=== PATIENT | female | born 1975 | race Caucasian/White ===

== ENCOUNTER → 2020-09-18 09:13 | Outpatient (CLI) | payer OTHER, SELFPAY ==
[2020-09-18 11:47] LABS: COVID19 -Nasal RAPID Negative (Negative)
== END ==
PROVIDERS: Visit Provider Student in an Organized Health Care Education/Training Program
DX: Z20.822 Contact with and (suspected) exposure to COVID-19 (principal); Z01.812 Encounter for preprocedural laboratory examination
CPT/HCPCS: 87635

== ENCOUNTER 2020-09-20 06:35 | Day surgery (SDC) | payer OTHER, SELFPAY ==
[2020-09-19 12:54] VITALS: BP 151/94; PULSE 90; RESP 18; TEMP 36.3; O2SAT 94
[2020-09-20] VITALS (10 sets, daily range): BP systolic 137–167; BP diastolic 85–97; PULSE 77–106; RESP 16–28; TEMP 36.1–36.6; O2SAT 96–99; BMI 50.1
--- NOTE | 2020-09-20 07:25 | PM.PREOP ---
Pre-operative Note COVID-19 COVID-19 status: Negative Interval Note History & Physical reviewed/Exam performed by Physician: Yes Changes to H&P: No
[2020-09-20] MEDS: LACTATED RINGERS 1,000 ML 42 ML IV ×2 (07:27→11:15)
[2020-09-20] MEDS: ACETAMINOPHEN 325 MG TABLET 975 MG PO (07:27)
[2020-09-20] MEDS: SCOPOLAMINE 1 PATCH TOP (07:37)
[2020-09-20] MEDS: CEFAZOLIN 3 GM IN 0.9 % NACL 100 ML IV (08:05)
--- NOTE | 2020-09-20 08:08 | SUR.PREOP ---
Block start time [0740] . Time out completed Monitoring initiated and maintained throughout procedure. Oxygen given per anesthesiologist instructions. Medications given by Dr. Tate. Patient remained stable throughout procedure, no adverse reactions noted. Block end time [0800]. Pt left for the OR in stable condition.
--- NOTE | 2020-09-20 08:44 | SUR.OPER ---
Supine on padded OR bed, head on pillow, arms secured on padded arm boards with blanket underneath each pad for aligned shoulder positioning at <90 degrees abduction, legs uncrossed, safety belt across abdomen, tape over blanket over nonoperative lower leg.
--- NOTE | 2020-09-20 09:01 | PM.PROC.1 ---
Procedures Date/Time Date of procedure: 09/20/20 Time of procedure: 07:50 Nerve Block Time out performed: Yes Local anesthetic used: other (5mL 2% Lidocaine, 10mL 0.5% Ropivacaine) Location of anesthetic used: lateral popliteal Amount of anesthesia used (mL): 15 Nerve blocks: other (sciatic nerve) Procedure successful: Yes Patient tolerated procedure: well Complications: none Additional comments: LEFT Ultrasound guided lateral popliteal sciatic nerve block for post operative pain management, as discussed with surgeon. Risks, benefits discussed with patient and spouse. Consent verified. Site marked by surgeon. Time out performed. Standard ASA monitors applied, NC O2, 2mg versed. Pt supine. BETADINE prep. Sterile US sleeve and gel. Sciatic nerve identified proximal to popliteal fossa, at bifurcation. Lidocaine local skin wheal. 100mm x 21g Pajunk needle advanced with in-plane US guidance to nerve. Negative aspiration. 5mL 2% lidocaine and 10mL 0.5% ropivacaine injected with intermittent negative aspiration. Good LA spread noted on US. No pain, no paresthesias. VSS. Tolerated well.
--- NOTE | 2020-09-20 09:02 | P.PCN_ITS ---
Procedures Date/Time Date of procedure: 09/20/20 Time of procedure: 07:45 Nerve Block Time out performed: Yes Local anesthetic used: lidocaine 1% (w/ epi 5mL + 10mL 0.5% ropivacaine) Location of anesthetic used: adductor canal Amount of anesthesia used (mL): 15 Nerve blocks: femoral (adductor canal) Procedure successful: Yes Patient tolerated procedure: well Complications: none Additional comments: Adductor canal block for post operative pain management. R/B discussed. Site marked. Consent verified/signed. Standard ASA monitors. NC O2. Betadine. Sterile technique. Femoral A/V/N identified medial mid thigh with US. Lidocaine skin wheal. 100mm x 21g Pajunk needle advanced with in- plane US guidance. Negative aspiration. LA injected medial and lateral to femoral artery. Negative aspiration throughout. No pain, no paresthesia with injection. VSS. Tolerated well. To OR.
--- NOTE | 2020-09-20 10:01 | DI.RAD.S_ITS ---
PROCEDURE: XR ANKLE LT 2V INDICATIONS: LT ANKLE FIXATION TECHNIQUE: Six intraoperative fluoroscopic spot views of the ankle were acquired. COMPARISON: [facility] Outside Film, CT, CT ANKLE LEFT WITHOUT CONTRAST, 09/09/2020, 14:56. FINDINGS: Bones: Lateral fibular fixation plate and multiple transverse screws are present. There is a medial malleolar lag screw and medial tibial metaphyseal fixation plate with transverse screws. The ankle mortise is normally aligned. There is near anatomic alignment of fibular fracture. Minimally displaced posterior malleolar fracture plane is seen. Soft tissues: Expected overlying intraoperative changes.. IMPRESSION: Intraoperative fluoroscopic spot imaging for ORIF left ankle. Dictated by: Mary Anne Rosen M.D. on 09/20/2020 at 16:06 Approved by: Mary Anne Rosen M.D. on 09/20/2020 at 16:09
[2020-09-20] MEDS: BUPIVACAINE 0.25% W/ EPI 30 ML VIAL INJ (10:25)
[2020-09-20] MEDS: ONDANSETRON 4 MG/2 ML INJ IV (11:03)
[2020-09-20] MEDS: METOCLOPRAMIDE 10 MG/2 ML INJ IV (11:11)
--- NOTE | 2020-09-20 11:18 | P.OP_ITS ---
Operative Date/Time/Diagnoses Date of procedure: 09/20/20 Time of procedure: 08:20 Pre-op diagnosis: Left trimalleolar ankle fracture dislocation S82.852 BMI 50 Z68.43 Post-op diagnosis: same Procedure & Clinicians Procedure: Open reduction internal fixation trimalleolar ankle fracture left Cpt 95173 Removal external fixator device ankle 14210 Modifier #58 for staged procedure. Patient had a fracture out of state was managed in an external fixator and moved to [facility] for definitive fixation Same procedure as scheduled: Yes Indications: During the operation, the services of a physician assistant professor surgical technology were medically indicated and necessary to provide the exposure of the operative site for the surgical procedure and to maintain the limb in a proper position to carry out the operation safely and efficiently. Without a qualified assistant casino shift manager being present this would extended the operative procedure and made the procedure technically more difficult to perform. Surgeon: Hallie Crain Slumber Room Attendant: Althea Ennis Anesthesia Type: General, Peripheral nerve block and Local Operative Notes Findings: Trimalleolar ankle fracture left. Comminuted posterior medial and posterior lateral malleolar fracture fragments with the major fragment posterior medial. Additional smaller anterior medial malleolus fracture fragment that was rotated 90? and displaced. Holliday C lateral malleolus fracture. Medial malleolus was fixed with a single 4-0 cannulated screw from the Arthrex set due to its small size. Posterior malleolus fracture was fixed using a buttress plate along the posterior medial component of the fracture. The lateral malleolus was fixed with a 1/3 tubular plate and screws. The syndesmosis was stressed under external rotation under fluoroscopy there was no widening. Prosthetic devices, grafts, tissues, transplants, or devices: Lateral malleolus: Arthrex 7 hole 1/3 tubular plate--cortical screws Posterior malleolus: Arthrex 4 hole 1/3 tubular plate and screws Medial malleolus: Arthrex 4.0 40 mm long thread cannulated screw Applied: other (Splint) Estimated Blood Loss (mL): 20 Blood products transfused: none Tourniquet time (min): 93 Procedure in detail: Patient was seen in the preoperative area the site of surgery marked informed consent confirmed. A peripheral nerve block was placed by the anesthesia team for postoperative pain control. Patient was taken back to the operating room and positioned supine on the operative table. General anesthetic was administered. A well-padded thigh tourniquet was placed. All bony prominences were well padded. An SCD was placed on the contralateral lower extremity. Formal time-out was performed confirming the patient's side and site of surgery administration of appropriate weight based antibiotics presence of informed consent and implants. All were in agreement. Attention then turned to the left lower extremity. The external fixator was removed in standard fashion following removal the left lower extremities prepped and draped in the standard sterile fashion. An additional time-out was performed. Gauze and Ioban were used over the external fixator sites. Attention turned to the left ankle. Esmarch was used for exsanguination the tourniquet raised on the thigh to 250 mmHg. Due to the predominantly posterior medial fragment of the posterior malleolus this was attended to 1st. A posterior medial incision over the posterior tibialis tendon was taken down around the medial malleolus this was taken down through the subcutaneous tissue the posterior tendon sheath was identified and opened. The posterior tibialis tendon was reflected anteriorly. This did expose the posterior medial aspect of the posterior malleolus fracture. This was debrided and reduced and pinned in place provisionally. Then attention was turned to the anterior aspect of the medial malleolus with separate medial malleolar fragment this had infolded periosteum this was removed the fracture was cleaned using the pituitary rongeur and irrigation. The fracture was de rotated and reduced and held in place with a pointed reduction clamp and K-wire. Provisional x-rays were brought in and in the AP and lateral planes demonstrated appropriate reduction and wire placement at therefore a 4 hole 1/3 tubular plate was then positioned just posterior to the posterior tibialis tendon groove and fixed in place and buttress style to stabilize the posterior malleolus. Care was taken to the keep this just posterior to the tendon groove. The medial malleolus was then fixed with a 4.0 cannulated screw from the Arthrex set. This was quite a small fragments was single screw was used in the long thread was appropriate. Next the leg was internally rotated and attention turned to the lateral malleolus incision was made directly over the lateral malleolus and taken down to the bone there was a short oblique fracture with a posterior butterfly this was reduced using the reduction clamps and then plated with a 7 hole 1/3 tubular plate and screws. Bone quality was noted to be good with good bite on the cortical screws. Following completion of fixation x-ray was brought in and live fluoroscopy using external rotation stress was completed demonstrating stabilization of the syndesmosis and appropriate fixation hardware placement. The wounds were irrigated the tourniquet was released hemostasis was achieved. Deep closure was performed with 2-0 Vicryl suture and 4-0 Monocryl in the subcutaneous and 3-0 nylon in the skin. All counts were correct. Dressings were placed with Xeroform gauze Webril and Delgado wrap. Following closure of the surgical wounds the pin sites were curetted and irrigated and a single loose stitch was placed in these to approximate them. Was noted consistent with the preoperative exam in clinic the patient did have a superficial ulceration posteriorly from resting pressure in her external fixator --a Xeroform gauze was placed on this and care was taken to place the splint with no posterior slab a to avoid any more pressure on this. She was awoken from anesthesia and taken to the recovery room in good condition. There no immediate complications. Post-operative Plan for aftercare: Nonweightbearing left lower extremity. Aspirin starting postop day 1 for DVT prophylaxis. Pain medications were sent to her pharmacy as well as anti nausea medication. She is on senna can also take Colace for stool softeners. She will follow up in 2 weeks. Sutures will remain in place minimum 2 weeks
--- NOTE | 2020-09-20 12:22 | SUR.PHASEII ---
Assumed care from Vanita, pt denies pain, states she still has residual nausea, but would like to sip on paul pankaj.
--- NOTE | 2020-09-20 13:38 | SUR.PHASEII ---
Assisted to the bathroom in the wheelchair. States that nausea is improved, voided and dressed herself unassisted. Stated this isn't my first rodeo. Returned to bedside in wheelchair, crackers and soda at chairside. Stated that she feels ready to go home; ride notified.
== END 2020-09-20 13:52 | disposition home or self-care (01) ==
PROVIDERS: Referring Provider Orthopaedic Surgery Foot and Ankle Surgery; Visit Provider Orthopaedic Surgery Foot and Ankle Surgery
PROC: (CPT 27823; principal; 2020-09-20 07:45)
DX: S82.852A Displaced trimalleolar fracture of left lower leg, initial encounter for closed fracture (principal); Z68.43 Body mass index [BMI] 50.0-59.9, adult; E66.9 Obesity, unspecified; I10 Essential (primary) hypertension; F32.9 Major depressive disorder, single episode, unspecified; G47.33 Obstructive sleep apnea (adult) (pediatric); W19.XXXA Unspecified fall, initial encounter; Y92.89 Other specified places as the place of occurrence of the external cause
CPT/HCPCS: 27823; 20694; 64450; 73600; 76000; J0690; J1100; J2250; J2405; J2704; J2765; J3010

== ENCOUNTER → 2020-11-15 08:56 | Outpatient (CLI) | payer OTHER, SELFPAY ==
[2020-11-15 09:26] LABS: COVID19 -Nasal RAPID Negative (Negative)
== END ==
PROVIDERS: Visit Provider Nurse Practitioner
DX: Z20.822 Contact with and (suspected) exposure to COVID-19 (principal); J02.9 Acute pharyngitis, unspecified; R05.9 Cough, unspecified; R51.9 Headache, unspecified; R52 Pain, unspecified
CPT/HCPCS: 87635

== ENCOUNTER → 2021-02-09 11:58 | Outpatient (CLI) | payer OTHER, SELFPAY ==
[2021-02-09 12:32] LABS: COVID19 -Nasal RAPID Negative (Negative)
== END ==
PROVIDERS: Referring Provider Physician Assistant; Visit Provider Physician Assistant
DX: Z20.822 Contact with and (suspected) exposure to COVID-19 (principal)
CPT/HCPCS: 87635

== ENCOUNTER → 2021-02-27 15:06 | Outpatient (CLI) | payer OTHER, SELFPAY ==
--- NOTE | 2021-02-27 | DI.RAD.S_ITS ---
PROCEDURE: XR CHEST 2V INDICATIONS: Palpitations TECHNIQUE: 2 views of the chest were acquired. COMPARISON: None. FINDINGS: Surgical changes and devices: None. Lungs and pleura: Lungs are clear. No pleural effusions or pneumothorax. Mediastinum: Mediastinal contours are normal. Heart size is normal. Bones and chest wall: No suspicious bony abnormalities. Soft tissues appear unremarkable. IMPRESSION: No acute process. Dictated by: Ion Price M.D. on 02/27/2021 at 16:06 Approved by: Ion Price M.D. on 02/27/2021 at 16:06
== END ==
PROVIDERS: PCP Student in an Organized Health Care Education/Training Program; Referring Provider Student in an Organized Health Care Education/Training Program; Visit Provider Student in an Organized Health Care Education/Training Program
DX: R00.2 Palpitations (principal)
CPT/HCPCS: 71046

== ENCOUNTER → 2021-04-15 14:58 | Outpatient (CLI) | payer OTHER, SELFPAY ==
--- NOTE | 2021-04-15 | DI.NM.S_ITS ---
PROCEDURE: NM EXERCISE TREADMILL NON NUC COMPARISON: None. INDICATIONS: Old myocardial infarction FINDINGS: The patient exercised for 6 minutes and 0 seconds reaching 7.0 METs and ERI +27%. 90% of maximum predicted heart rate achieved. Appropriate BP response to exercise. No angina during the study. No ST changes with exercise. No ectopy noted. IMPRESSION: Low risk, normal treadmill ECG only stress test with reduce exercise tolerance (ERI +27%). Target heart rate achieved. No angina. No ischemic changes on ECG. Dictated by: Dean Burch MD on 04/15/2021 at 16:06 Approved by: Dean Burch MD on 04/15/2021 at 16:08
== END ==
PROVIDERS: PCP Student in an Organized Health Care Education/Training Program; Referring Provider Student in an Organized Health Care Education/Training Program; Visit Provider Student in an Organized Health Care Education/Training Program
DX: I25.2 Old myocardial infarction (principal)
CPT/HCPCS: 93017

== ENCOUNTER → 2021-04-21 10:19 | Outpatient (CLI) | payer OTHER, SELFPAY ==
--- NOTE | 2021-04-21 | DI.ECHO.S_ITS ---
[facility]---------+ [facility] +---------+ : : [address] [place] : : : : [id number] : : : : Phone: [phone]+ Echocardiogram Report + + :Name: VALENTIN YAP Study Date: 04/21/2021 Height: 67 in : :[facility] ReadingLocation: Weight: 298 lb : : Gender: Female BSA: 2.4 m2 : :: 1975 Age: 45 yrs BP: 134/82 mmHg: :Reason For Study: OLD MYOCARDIAL INFARCTION/ LAB : :Ordering Physician: FREDDIE, : :DEENA Performed By: Gisell Camarillo : :Referring: DEENA FRAZIER : + + Interpretation Summary There is mild concentric left ventricular hypertrophy. The ejection fraction is estimated to be 60-65%. Diastolic function could not be accurately assessed due to unobtainable data. The right ventricle is mildly dilated. The right ventricular systolic function is normal. The left atrium is mildly dilated. No significant valvular abnormalities. Pulmonary artery pressures cannot be estimated because of the lack of a measurable TR jet velocity. Procedure: A two-dimensional transthoracic echocardiogram with color flow and Doppler was performed. The study quality was technically adequate. There is no prior echocardiogram noted for this patient. The patient was in sinus rhythm with heart rates between 68-76 bpm during the exam. Left Ventricle: The left ventricle is normal in size. There is mild concentric left ventricular hypertrophy. The ejection fraction is estimated to be 60-65%. Diastolic function could not be accurately assessed due to unobtainable data. Right Ventricle: The right ventricle is mildly dilated. The right ventricular systolic function is normal. Atria: The left atrium is mildly dilated. Right atrial size is normal. There is no Doppler evidence for an interatrial shunt. Mitral Valve: The mitral valve is normal in structure and function. There is trace mitral regurgitation. Aortic Valve: The aortic valve opens well. There is no aortic valve stenosis. No aortic regurgitation is present. Tricuspid Valve: The tricuspid valve is normal in structure and function. There is a trace or physiologic amount of tricuspid regurgitation. Pulmonary artery pressures cannot be estimated because of the lack of a measurable TR jet velocity. Pulmonic Valve: The pulmonic valve is not well visualized. There is no pulmonic valvular regurgitation. Great Vessels: The aortic root is normal size. The dimensions of the ascending aorta are normal. The IVC is of normal diameter and collapses greater than 50% with a sniff. This suggests a low right atrial pressure of 3 mm Hg. Pericardium/ Pleura There is no pericardial effusion. There is no pleural effusion. MMode/2D Measurements & Calculations LVIDd: 4.2 cm LVOT diam: 2.0 cm LVIDs: 2.5 cm Ao root diam: 3.5 cm FS: 39.9 % asc Aorta Diam: 3.5 cm IVSd: 1.1 cm Ao Arch Diam (Prox Trans): 2.7 cm LVPWd: 1.1 cm LV obando. diameter/BSA (cm/m^2): 1.7 LV sys. diameter/BSA (cm/m^2): 1.1 LA A2 area: 24.7 cm2 RA long axis: 5.3 cm LA A4 area: 29.1 cm2 RA area: 21.9 cm2 LA length (vol): 6.1 cm RA vol: 76.9 ml LA vol: 100.4 ml RA : 32.1 ml/m2 LA vol index: 41.9 ml/m2 IVC diam: 1.6 cm RVD1 (basal): 4.3 cm TAPSE: 2.4 cm Doppler Measurements & Calculations Ao V2 max: 142.2 cm/sec LVOT Max Margarito: 99.5 cm/sec Ao V2 mean: 101.5 cm/sec LV V1 max P.0 mmHg Ao max P.1 mmHg LV V1 VTI: 24.0 cm Ao mean P.5 mmHg JESICA(I,D): 2.3 cm2 Ao V2 VTI: 32.5 cm JESICA(V,D): 2.2 cm2 sev ratio: 0.74 JESICA indexed to BSA (cm^2/m^2): 0.97 MV E max margarito: 76.9 cm/sec PA V2 max: 96.9 cm/sec MV A max margarito: 81.5 cm/sec PA V2 mean: 62.9 cm/sec MV E/A: 0.94 PA mean P.8 mmHg Med Peak E' Margarito: 7.2 cm/sec PA pr(Accel): 22.5 mmHg E/E' med: 10.8 Lat Peak E' Margarito: 10.1 cm/sec E/E' lat: 7.6 E/e' average: 9.2 MV dec time: 0.21 sec SVLVOT): 75.7 ml Reading Physician:09:55 AM
[2021-04-21 11:44] LABS: Add Manual Diff / Slide Review NO; Basophils Absolute Auto 100 /uL (0-100); Basophils Percent Auto 0.7 % (0-2); Eosinophils Absolute Auto 100 /uL (0-450); Hematocrit 38.8 % (36-46); Hemoglobin 12.9 g/dL (12.0-16.0); Lymphocytes Absolute Auto 2800 /uL (1100-4500); Lymphocytes Percent Auto 29.4 % (25-40); Mean Corpuscular HGB Conc 33.3 % (30-36); Mean Corpuscular Hemoglobin 28.7 PG (26-34); Mean Corpuscular Volume 86.3 fL (80-100); Monocytes Absolute Auto 500 /uL (0-900); Monocytes Percent Auto 4.8 % (3-14); Neutrophils Absolute Auto 6100 /uL (1500-7000); Neutrophils Percent Auto 64.1 % (50-75); Platelet Count 357 X10^3/uL (150-400); Red Cell Distribution Width 13.8 % (11.6-14.8); White Blood Cell Count 9.5 X10^3/uL (4.5-11.0)
[2021-04-21 11:49] LABS: Hemoglobin A1C% w Est Avg Glu 5.1 % (4.0-6.0)
[2021-04-21 12:29] LABS: BUN Creatinine Ratio 26.2 (6-22); Blood Urea Nitrogen 17 mg/dL (7-17); Calcium 9.1 mg/dL (8.4-10.2); Carbon Dioxide 25 mmol/L (22-32); Chloride 105 mmol/L (98-107); Cholesterol 189 mg/dL (140-199); Estimated Glomerular Filt Rate > 60.0 mL/min (>60); Glucose 84 mg/dL (70-100); HDL Cholesterol 39 mg/dL (40-60); HEMOLYSIS < 15 (0-50); LDL Cholesterol Calculated 119 mg/dL (<100); Magnesium 2.1 mg/dL (1.6-2.3); Potassium 4.6 mmol/L (3.4-5.1); Sodium 137 mmol/L (137-145); Triglycerides 155 mg/dL (35-150)
[2021-04-21 12:54] LABS: TSH w/ Reflex to FT4 2.07 uIU/mL (0.47-4.68)
== END ==
PROVIDERS: PCP Student in an Organized Health Care Education/Training Program; Referring Provider Student in an Organized Health Care Education/Training Program; Visit Provider Student in an Organized Health Care Education/Training Program
DX: I25.2 Old myocardial infarction (principal); I47.2 Ventricular tachycardia; I10 Essential (primary) hypertension; R00.2 Palpitations; E78.1 Pure hyperglyceridemia
CPT/HCPCS: 36415; 80048; 80061; 83036; 83735; 84443; 85025; 93306

== ENCOUNTER 2021-07-11 06:23 | Day surgery (SDC) | payer OTHER, SELFPAY ==
[2021-07-08 08:05] VITALS: BMI 44.9
[2021-07-11] VITALS (16 sets, daily range): BP systolic 140–159; BP diastolic 77–97; PULSE 69–83; RESP 12–18; TEMP 36.1–36.5; O2SAT 93–98; BMI 44.9
[2021-07-11] MEDS: ACETAMINOPHEN 325 MG TABLET 975 MG PO (06:58)
[2021-07-11] MEDS: GABAPENTIN 300 MG CAPSULE PO (06:59)
[2021-07-11] MEDS: SCOPOLAMINE 1 PATCH TOP (07:01)
[2021-07-11] MEDS: LACTATED RINGERS 1,000 ML 42 ML IV (07:01)
[2021-07-11 07:06] LABS: COVID19 -Nasal RAPID Negative (Negative)
--- NOTE | 2021-07-11 07:26 | PM.PREOP ---
Pre-operative Note COVID-19 COVID-19 status: Negative Result date/Date tested (Pos, Neg/Pending): 07/11/21 Interval Note History & Physical reviewed/Exam performed by Physician: Yes Changes to H&P: No
[2021-07-11] MEDS: CEFAZOLIN 3 GM IN 0.9 % NACL 3 GM/100 ML PLAST..BAG IV (07:45)
--- NOTE | 2021-07-11 08:20 | SUR.OPER ---
Supine on padded OR bed, head on pillow, arms secured on padded arm boards at <90 degrees abduction, legs uncrossed, safety belt at thigh, tape over blanket over lower legs. directed and approved by surgeon
[2021-07-11] MEDS: BUPIVACAINE 0.25% (PF) 30 ML, EPINEPHrine 0.15 MG INJ (08:26)
--- NOTE | 2021-07-11 09:25 | P.OP_ITS ---
Operative Date/Time/Diagnoses Date of procedure: 07/11/21 Time of procedure: 08:00 Pre-op diagnosis: Painful orthopedic hardware left ankle Fracture ankle trimalleolar left sequela Post-op diagnosis: other (Same as above plus adherent tendinitis and backside tear posterior tibialis tendon) Procedure & Clinicians Procedure: 1. Removal symptomatic hardware ankle left CPT code 61511 2. Debridement posterior tibialis tendon and backside tear repair CPT code 75028 Same procedure as scheduled: Yes Indications: Patient is a 45-year-old female status post a severe left ankle fracture dislocation she had stage treatment she was 1st placed into an external fixator in [place] and was later converted to definitive ORIF and external fixator removal by myself about 10 months ago. She has had continued pain along her medial and lateral ankle. She has been indicated for hardware removal and exploration. The risks and benefits of the procedure have been discussed with the patient even opportunity to ask questions. The risks of surgery include but are not limited to infection, malunion, nonunion, persistence of pain, damage to nerves and blood vessels, posttraumatic arthritis, DVT, PE, cardiopulmonary complications and . The patient expressed a thorough understanding of the risks and benefits of surgery and has elected to proceed. Consent was signed in the office today. Surgeon: Hallie Crain Click Yes if Unassisted: Yes Anesthesia Type: General and Local Operative Notes Findings: Retained orthopedic hardware. Healed fractures. All hardware was removed. Ankle was stable under fluoro stress exam post removal. Adherent tenosynovitis along the posterior tibialis tendon along with a backside partial thickness tear. No full-thickness tears. The adherent tendinitis was debrided and the backside tear was repaired 2-0 Vicryl tubularizing the tendon Closure Type: primary Specimen(s): none sent Estimated Blood Loss (mL): 10 Blood products transfused: none Tourniquet time (min): 56 Procedure in detail: Patient was seen in the preoperative area the site of surgery marked informed consent confirmed. The patient was brought back to the operating room by the anesthesia team positioned supine on the operative table. General anesthetic was administered. All bony prominences well padded. A well-padded thigh tourniquet was placed. A SCD was on the contralateral lower extremity. And an ipsilateral thigh bump was placed. The left lower extremities prepped and draped in the standard sterile fashion formal time-out procedure was performed confirming the patient's side and site of surgery administration of appropriate preoperative antibiotics which were weight based Ancef 3 g. All were in agreement. Attention turned to the left lower extremity the Esmarch was used for exsanguination the tourniquet elevated to 250 mmHg. Attention was turned to the ankle the previous lateral incision was reopened using the scalpel. Dissection was taken down to the fibular plate this was exposed and removed with 6 screws and a 1/3 tubular plate. The bone was then rongeured off the wound was irrigated and closed with 2-0 Vicryl and 3-0 nylon suture. They 5 bump was then removed and the foot allowed to externally rotate and the medial incision was then reopened in the same fashion with careful dissection down to the medial malleolus. The posterior tibialis tendon sheath was opened. There was copious adherent scar in this area. The tendon was exposed and retracted posteriorly adherent scar to the back the tibia was removed and the posterior medial tibial plate was exposed. Screws were removed and the 1/3 tubular plate was removed. The tendon was debrided of adherent tenosynovitis and scar. There was a backside partial thickness tear that was demonstrated this was debrided and tubularized with a 2-0 Vicryl suture. Again the scar was freed up to allow good tendon gliding. Once this was completed attention was turned distally and the anterior medial now partially threaded screw was identified and removed in the standard fashion. Once this was completed the patient leg was placed under the mini C-arm for a fluoroscopic examination confirming appropriate complete hardware removal and healed fractures and stable mortise. The wounds were irrigated and closed with 2-0 Vicryl suture 4-0 Monocryl and 3-0 nylon suture. Tourniquet was released and hemostasis obtained prior to final closure. Local anesthetic was injected for postoperative pain control. Sterile dressing with Xeroform gauze Kerlix and Delgado wraps were placed. Drapes removed. The patient was placed back into her postoperative boot awoken from anesthesia and taken to recovery room in good condition there no immediate complications to this procedure. All counts were correct Complications: none Post-operative Condition: stable Disposition: PACU Plan for aftercare: Weightbear as tolerated in the boot. Keep incisions dry until follow-up in the clinic in approximately 2 weeks. Elevate as needed for swelling reduction and pain control. Will take aspirin for DVT prophylaxis for 2 weeks while in the boot
[2021-07-11] MEDS: fentaNYL 100 MCG/2 ML INJ IV ×6 (09:30→10:05)
[2021-07-11] MEDS: HYDROCODONE/ACET 5/325 TABLET 1 TAB PO (09:37)
[2021-07-11] MEDS: OXYCODONE IR 5 MG TABLET PO (10:05)
[2021-07-11] MEDS: LORazepam 2 MG/ML INJ 0.25 MG IV (10:09)
== END 2021-07-11 11:16 | disposition home or self-care (01) ==
PROVIDERS: PCP Student in an Organized Health Care Education/Training Program; Referring Provider Orthopaedic Surgery Foot and Ankle Surgery; Visit Provider Orthopaedic Surgery Foot and Ankle Surgery
PROC: (CPT 27659; principal; 2021-07-11 07:45)
DX: T84.84XA Pain due to internal orthopedic prosthetic devices, implants and grafts, initial encounter (principal); M65.872 Other synovitis and tenosynovitis, left ankle and foot; S96.812A Strain of other specified muscles and tendons at ankle and foot level, left foot, initial encounter; Z68.43 Body mass index [BMI] 50.0-59.9, adult; E66.01 Morbid (severe) obesity due to excess calories; I10 Essential (primary) hypertension; F43.10 Post-traumatic stress disorder, unspecified; G47.33 Obstructive sleep apnea (adult) (pediatric)
CPT/HCPCS: 27659; 27704; 81025; 82962; 87635; C9803; J0171; J0690; J1100; J1885; J2060; J2250; J2405; J2704; J3010

== ENCOUNTER → 2021-09-19 09:16 | Outpatient (CLI) | payer OTHER, SELFPAY ==
--- NOTE | 2021-09-19 | DI.ECHO.S_ITS ---
[facility] +---------+ : : [address] [place] : : : : [id number] : : : : Phone: [phone] Echocardiogram Report + + :Name: VALENTIN YAP Study Date: 09/19/2021 Height: 67 in : :[facility] ReadingLocation: Weight: 300 lb : : Gender: Female BSA: 2.4 m2 : :: 1975 Age: 46 yrs BP: 152/90 mmHg: :Reason For Study: VTACH : : Performed By: Umberto Davenport : :Referring: ELISSA BURCH : + + Interpretation Summary 1) Normal left ventricular thickness, size, wall motion, and systolic function (EF 60-65%). 2) Normal right ventricular size and function. 3) No significant valvular abnormalities. 4) Compared to the Echo done 04/21/2021, on significant change. Procedure: A two-dimensional transthoracic echocardiogram with color flow and Doppler was performed. The study quality was technically adequate. Comparison is made with the echocardiogram of 04/21/21. The patient was in normal sinus rhythm during the exam. Left Ventricle: The left ventricle is normal in size. There is normal left ventricular wall thickness. The ejection fraction is estimated to be 60-65%. There are no focal wall motion abnormalities. Diastolic parameters suggest a relaxation abnormality of the left ventricle, consistent with probable normal filling pressures. Right Ventricle: The right ventricle is normal in size and function. Atria: The left atrium is moderately dilated. Right atrial size is normal. There is no Doppler evidence for an atrial septal defect. Mitral Valve: The mitral valve is normal in structure and function. There is trace mitral regurgitation. Aortic Valve: The aortic valve is trileaflet. The aortic valve opens well. There is no aortic valve stenosis. No aortic regurgitation is present. Tricuspid Valve: The tricuspid valve is normal in structure and function. No tricuspid regurgitation. Pulmonary artery pressures cannot be estimated because of the lack of a measurable TR jet velocity but the IVC suggests a CVP of around 3 mmHg. Pulmonic Valve: The pulmonic valve is not well visualized. There is no pulmonic valvular regurgitation. Great Vessels: The aortic root is normal size. The ascending aorta is at the upper limits of normal in size. The pulmonary artery is normal size. The IVC is of normal diameter and collapses greater than 50% with a sniff. This suggests a low right atrial pressure of 3 mm Hg. Pericardium/ Pleura There is no pericardial effusion. There is no pleural effusion. MMode/2D Measurements & Calculations LVIDd: 5.1 cm LVOT diam: 2.1 cm LVIDs: 3.0 cm Ao root diam: 3.0 cm FS: 41.6 % asc Aorta Diam: 3.5 cm EPSS: 0.22 cm Ao Arch Diam (Prox Trans): 2.5 cm IVSd: 0.92 cm LVPWd: 0.78 cm LV obando. diameter/BSA (cm/m^2): 2.1 LV sys. diameter/BSA (cm/m^2): 1.2 LA A2 area: 27.8 cm2 RA long axis: 4.8 cm LA A4 area: 27.0 cm2 RA area: 16.5 cm2 LA length (vol): 6.6 cm RA vol: 48.6 ml LA vol: 96.2 ml RA : 20.2 ml/m2 LA vol index: 40.1 ml/m2 IVC diam: 1.6 cm TAPSE: 2.4 cm Doppler Measurements & Calculations Ao V2 max: 175.4 cm/sec LVOT Max Margarito: 108.2 cm/sec Ao V2 mean: 142.6 cm/sec LV V1 max P.7 mmHg Ao max P.3 mmHg LV V1 VTI: 26.2 cm Ao mean P.5 mmHg JESICA(I,D): 2.1 cm2 Ao V2 VTI: 41.2 cm JESICA(V,D): 2.1 cm2 sev ratio: 0.64 JESICA indexed to BSA (cm^2/m^2): 0.89 MV E max margarito: 67.7 cm/sec PA V2 max: 86.9 cm/sec MV A max margarito: 88.1 cm/sec PA V2 mean: 69.9 cm/sec MV E/A: 0.77 PA mean P.0 mmHg Med Peak E' Margarito: 5.8 cm/sec PA pr(Accel): 34.5 mmHg E/E' med: 11.6 Lat Peak E' Margarito: 8.8 cm/sec E/E' lat: 7.7 E/e' average: 9.6 MV dec time: 0.25 sec SV(LVOT): 88.3 ml Reading Physician:10:00 AM
== END ==
PROVIDERS: Referring Provider Internal Medicine Cardiovascular Disease; Visit Provider Internal Medicine Cardiovascular Disease
DX: I47.2 Ventricular tachycardia (principal); I10 Essential (primary) hypertension
CPT/HCPCS: 93306

== ENCOUNTER 2022-04-27 12:13 | Emergency (ER) | payer OTHER, SELFPAY ==
[2022-04-27] VITALS (7 sets, daily range): BP systolic 136–174; BP diastolic 75–105; PULSE 66–78; RESP 18; TEMP 36.4; O2SAT 96–99; BMI 43.0
--- NOTE | 2022-04-27 12:51 | ED.GIBLEED ---
HPI - GI Bleed <Williams Warren PA-C - Last Filed: 04/27/22 15:45> General Chief complaint: GI Bleed Stated complaint: hives, abd pain, rectal bleeding, sent from [facility] Time Seen by Provider: 04/27/22 12:27 Source: patient Mode of arrival: Ambulatory History of Present Illness HPI Narrative: 46-year-old female presents to the ED with 3 days of right-sided abdominal pain, blood in stool, hives. Patient states that she is not aware of any hemorrhoids or prior rectal bleeds. Patient states she has had somewhat constipated bowel movements which is baseline, noted some bright red blood with every bowel movement over the last 3 days. Patient also complains of a right-sided upper quadrant pain. Patient endorses a history of gallbladder pain about 2 years ago, however has not been acting up recently. patient also endorses intermittent hives over the last 3 days. patient does have a lesion that looks like a bug bite on her right forearm. patient was allergy tested in the past with no allergies diagnosed. Patient has had prior episodes of hives of unknown etiology. Patient denies fever, chills, chest pain, shortness of breath, tongue swelling, lip swelling, throat swelling, nausea, vomiting, dysuria, lightheadedness, dizziness, syncope. Patient states that she does have a baseline level of urinary leakage, which has worsened since she broke her ankle and has not been able to get to the bathroom in a timely fashion. Related Data Home Medications Medication Instructions Recorded Confirmed ResMed AirSense 10 05/19/21 05/19/21 diltiazem HCl 240 mg 240 mg PO DAILY 07/08/21 07/11/21 tablet,extended release 24 hr Previous Rx's Medication Instructions Recorded prednisone 20 mg tablet 40 mg PO DAILY 5 days #10 tabs 04/27/22 Allergies Allergy/AdvReac Type Severity Reaction Status Date / Time povidone-iodine Allergy Severe Rash Verified 04/27/22 12:24 [From Betadine] Review of Systems <Williams Warren PA-C - Last Filed: 04/27/22 15:45> Review of Systems ROS Unobtainable: All systems reviewed & are unremarkable except as noted in HPI and below Constitutional Constitutional: Denies chills, Denies fatigue, Denies fever(s), Denies frequent falls, Denies lethargy and Denies weakness Eyes Eyes: Denies change in vision, Denies eye discharge, Denies irritation and Denies loss of vision ENT Ears, Nose, Mouth, and Throat: Denies change in voice, Denies dizziness, Denies neck pain, Denies sore throat and Denies throat swelling Cardiovascular Cardiovascular: Denies chest pain, Denies irregular heart rhythm, Denies lightheadedness, Denies palpitations, Denies dyspnea, Denies dyspnea on exertion and Denies orthopnea Respiratory Respiratory: Denies cough, Denies dyspnea, Denies dyspnea on exertion and Denies wheezing Gastrointestinal Gastrointestinal: Reports abdominal pain, Reports hematochezia, Denies change in bowel habits, Denies diarrhea, Denies nausea and Denies vomiting Genitourinary Genitourinary: Denies hematuria, Denies flank pain, Reports urinary incontinence and Denies urinary urgency Musculoskeletal Musculoskeletal: Denies back pain, Denies muscle weakness, Denies neck pain, Denies numbness and Denies tingling Integumentary/Breasts Skin/Breast: Denies pruritus, Denies erythema, Reports rash and Denies wounds Neurologic Neurologic: Denies behavioral changes, Denies confusion, Denies dizziness, Denies frequent falls, Denies loss of vision, Denies numbness, Denies tingling and Denies weakness Psychiatric Psychiatric: Denies anxiety, Denies behavioral changes, Denies confusion, Denies depression, Denies homicidal ideation and Denies suicidal ideation Endocrine Endocrine: Denies fatigue, Denies flushing and Denies palpitations Hematologic/Lymphatic Hematologic/Lymphatic: Denies easy bruising Allergic/Immunologic Allergic/Immunologic: Denies urticaria, Denies throat swelling and Denies wheezing Patient History <Williams Warren PA-C - Last Filed: 04/27/22 15:45> Medical History Awareness under anesthesia BCC (basal cell carcinoma) Chest pain Depression HTN (hypertension) Hypertriglyceridemia Migraine Palpitations PONV (postoperative nausea and vomiting) PTSD (post-traumatic stress disorder) Sleep apnea Surgical History History of open reduction and internal fixation (ORIF) procedure (09/20/20) Social History household members: family Smoking Status: Never smoker alcohol intake: current Smoking Status: Never smoker alcohol intake frequency: a few times a month Substance Use Type: does not use Exam <Williams Warren PA-C - Last Filed: 04/27/22 15:45> Narrative Exam Narrative: Const General:?cooperative, healthy appearing and comfortable [facility] Head:?normal to inspection Ears:?hearing grossly normal bilaterally Nose:?external nose normal Face and sinus:?normal facial exam and sinuses nontender Mouth:?oral mucosae normal; No lip swelling, tongue swelling Throat:?posterior oropharynx normal; no throat swelling; airway is patent Eyes General:?appearance normal, both eyes and all related structures Neck Neck:?normal visual inspection and no lymphadenopathy noted Resp Effort & Inspection:?normal respiratory effort Auscultation:?clear to auscultation bilaterally Cardio Rate:?regular rate Rhythm:?regular rhythm GI abdomen is soft, nondistended. Abdomen is tender to palpation in the right upper quadrant. There is no CVA tenderness to palpation. Integumentary there is 1 lesion on the left forearm that is erythematous, appears again to a bug bite. No hives visualized on exam. Neuro General:?patient alert, patient awake and patient oriented x3 Initial Vital Signs Initial Vital Signs: Vital Signs Temperature 97.5 F L 04/27/22 12:15 Pulse Rate 78 04/27/22 12:15 Respiratory Rate 18 04/27/22 12:15 Blood Pressure 174/103 H 04/27/22 12:15 Pulse Oximetry 99 04/27/22 12:15 Oxygen Delivery Method Room Air 04/27/22 12:15 <Mars Chi DO - Last Filed: 04/27/22 16:11> Initial Vital Signs Initial Vital Signs: Vital Signs Temperature 97.5 F L 04/27/22 12:15 Pulse Rate 78 04/27/22 12:15 Respiratory Rate 18 04/27/22 12:15 Blood Pressure 174/103 H 04/27/22 12:15 Pulse Oximetry 99 04/27/22 12:15 Oxygen Delivery Method Room Air 04/27/22 12:15 Course <Williams Warren PA-C - Last Filed: 04/27/22 15:45> Orders Ordered: ED Orders 04/27/22 12:50 Complete Blood Count AUTO DIFF Stat Comprehensive Metabolic Panel Stat Lactate (Lactic Acid) Stat PTT Partial Thromboplastin Ugstavo Stat Prothrombin Time INR Stat 04/27/22 13:07 US abdomen limited Stat 04/27/22 14:46 CT abdomen pelvis w con Stat Discontinued Medications Diphenhydramine HCl (Diphenhydramine 50 Mg/Ml Vial) 25 mg IV NOW ONE Stop: 04/27/22 13:10 Last Admin: 04/27/22 13:15 Dose: 25 mg Documented By: JAREN Famotidine (Famotidine 20 Mg/2 Ml Vial) 20 mg IV NOW RONEL Last Admin: 04/27/22 13:15 Dose: 20 mg Documented By: JAREN Ondansetron HCl (Ondansetron 4 Mg/2 Ml Inj) 4 mg IV NOW PRN PRN Reason: Nausea And Vomiting Ondansetron HCl (Ondansetron 4 Mg Odt) 4 mg SL NOW PRN PRN Reason: Nausea And Vomiting Pantoprazole Sodium (Pantoprazole 40 Mg Vial) 80 mg IV NOW ONE Stop: 04/27/22 12:24 Last Admin: 04/27/22 13:01 Dose: 80 mg Documented By: JAREN Prednisone (Prednisone 20 Mg Tablet) 60 mg PO NOW ONE Stop: 04/27/22 13:12 Last Admin: 04/27/22 13:17 Dose: 60 mg Documented By: JAREN Vital Signs Vital signs: Vital Signs - 8 hr 04/27/22 12:15 04/27/22 13:06 04/27/22 13:06 Temperature 97.5 F L Pulse Rate 78 69 Respiratory Rate 18 Blood Pressure 174/103 H 165/105 H Pulse Oximetry 99 98 Oxygen Delivery Method Room Air 04/27/22 13:30 04/27/22 13:30 04/27/22 14:00 Temperature Pulse Rate 69 66 Respiratory Rate 18 Blood Pressure 159/75 H Pulse Oximetry 96 97 Oxygen Delivery Method 04/27/22 14:01 04/27/22 14:01 04/27/22 14:30 Temperature Pulse Rate 66 Respiratory Rate 18 Blood Pressure 158/75 H 136/75 Pulse Oximetry 99 Oxygen Delivery Method 04/27/22 14:30 04/27/22 15:21 Temperature Pulse Rate 68 72 Respiratory Rate 18 Blood Pressure 145/94 H Pulse Oximetry 96 97 Oxygen Delivery Method Room Air <Mars Chi DO - Last Filed: 04/27/22 16:11> Orders Ordered: ED Orders 04/27/22 12:50 Complete Blood Count AUTO DIFF Stat Comprehensive Metabolic Panel Stat Lactate (Lactic Acid) Stat PTT Partial Thromboplastin Gustavo Stat Prothrombin Time INR Stat 04/27/22 13:07 US abdomen limited Stat 04/27/22 14:46 CT abdomen pelvis w con Stat Discontinued Medications Diphenhydramine HCl (Diphenhydramine 50 Mg/Ml Vial) 25 mg IV NOW ONE Stop: 04/27/22 13:10 Last Admin: 04/27/22 13:15 Dose: 25 mg Documented By: JAREN Famotidine (Famotidine 20 Mg/2 Ml Vial) 20 mg IV NOW RONEL Last Admin: 04/27/22 13:15 Dose: 20 mg Documented By: JAREN Ondansetron HCl (Ondansetron 4 Mg/2 Ml Inj) 4 mg IV NOW PRN PRN Reason: Nausea And Vomiting Ondansetron HCl (Ondansetron 4 Mg Odt) 4 mg SL NOW PRN PRN Reason: Nausea And Vomiting Pantoprazole Sodium (Pantoprazole 40 Mg Vial) 80 mg IV NOW ONE Stop: 04/27/22 12:24 Last Admin: 04/27/22 13:01 Dose: 80 mg Documented By: JAREN Prednisone (Prednisone 20 Mg Tablet) 60 mg PO NOW ONE Stop: 04/27/22 13:12 Last Admin: 04/27/22 13:17 Dose: 60 mg Documented By: JAREN Vital Signs Vital signs: Vital Signs - 8 hr 04/27/22 12:15 04/27/22 13:06 04/27/22 13:06 Temperature 97.5 F L Pulse Rate 78 69 Respiratory Rate 18 Blood Pressure 174/103 H 165/105 H Pulse Oximetry 99 98 Oxygen Delivery Method Room Air 04/27/22 13:30 04/27/22 13:30 04/27/22 14:00 Temperature Pulse Rate 69 66 Respiratory Rate 18 Blood Pressure 159/75 H Pulse Oximetry 96 97 Oxygen Delivery Method 04/27/22 14:01 04/27/22 14:01 04/27/22 14:30 Temperature Pulse Rate 66 Respiratory Rate 18 Blood Pressure 158/75 H 136/75 Pulse Oximetry 99 Oxygen Delivery Method 04/27/22 14:30 04/27/22 15:21 Temperature Pulse Rate 68 72 Respiratory Rate 18 Blood Pressure 145/94 H Pulse Oximetry 96 97 Oxygen Delivery Method Room Air MDM - GI Bleed <Williams Warren PA-C - Last Filed: 04/27/22 15:45> Lab Data 04/27/22 12:50 04/27/22 12:50 Labs: Lab Results 04/27/22 04/27/22 04/27/22 Range/Units 12:50 12:50 12:50 WBC 9.2 (4.5-11.0) X10^3/uL RBC 4.71 (4.0-5.2) X10^6/uL Hgb 13.7 (12.0-16.0) g/dL Hct 41.4 (36-46) % MCV 88.0 (80-100) fL MCH 29.2 (26-34) PG MCHC 33.2 (30-36) % RDW 13.9 (11.6-14.8) % Plt Count 351 (150-400) X10^3/uL Neut % (Auto) 60.2 (50-75) % Lymph % (Auto) 32.5 (25-40) % [place] % (Auto) 5.5 (3-14) % Eos % (Auto) 1.1 L (2-4) % Baso % (Auto) 0.7 (0-2) % Neut # (Auto) 5500 (6627-9595) /uL Lymph # (Auto) 3000 (5785-4632) /uL [place] # (Auto) 500 (0-900) /uL Eos # (Auto) 100 (0-450) /uL Baso # (Auto) 100 (0-100) /uL PT 13.0 H (10.1-12.7) SECONDS INR 1.1 (0.9-1.3) APTT 32 (26-36) SECONDS Sodium 138 (137-145) mmol/L Potassium 3.8 (3.4-5.1) mmol/L Chloride 105 (98-107) mmol/L Carbon Dioxide 22 (22-32) mmol/L BUN 14 (7-17) mg/dL Creatinine 0.62 (0.52-1.04) mg/dL Estimated GFR > 60 (>60) mL/min BUN/Creatinine Ratio 22.6 H (6-22) Glucose 92 (70-100) mg/dL Lactate (0.7-2.1) mmol/L Calcium 9.2 (8.4-10.2) mg/dL Total Bilirubin 0.6 (0.2-1.3) mg/dL AST 24 (14-36) IU/L ALT 21 (<35) IU/L Alkaline Phosphatase 58 (38-126) U/L Total Protein 8.1 (6.3-8.2) g/dL Albumin 4.6 (3.5-5.0) g/dL Globulin 3.5 (1.7-4.1) g/dL Albumin/Globulin Ratio 1.3 (1.0-2.8) 04/27/22 Range/Units 12:50 WBC (4.5-11.0) X10^3/uL RBC (4.0-5.2) X10^6/uL Hgb (12.0-16.0) g/dL Hct (36-46) % MCV (80-100) fL MCH (26-34) PG MCHC (30-36) % RDW (11.6-14.8) % Plt Count (150-400) X10^3/uL Neut % (Auto) (50-75) % Lymph % (Auto) (25-40) % [place] % (Auto) (3-14) % Eos % (Auto) (2-4) % Baso % (Auto) (0-2) % Neut # (Auto) (5567-4519) /uL Lymph # (Auto) (1978-3145) /uL [place] # (Auto) (0-900) /uL Eos # (Auto) (0-450) /uL Baso # (Auto) (0-100) /uL PT (10.1-12.7) SECONDS INR (0.9-1.3) APTT (26-36) SECONDS Sodium (137-145) mmol/L Potassium (3.4-5.1) mmol/L Chloride (98-107) mmol/L Carbon Dioxide (22-32) mmol/L BUN (7-17) mg/dL Creatinine (0.52-1.04) mg/dL Estimated GFR (>60) mL/min BUN/Creatinine Ratio (6-22) Glucose (70-100) mg/dL Lactate 0.8 (0.7-2.1) mmol/L Calcium (8.4-10.2) mg/dL Total Bilirubin (0.2-1.3) mg/dL AST (14-36) IU/L ALT (<35) IU/L Alkaline Phosphatase (38-126) U/L Total Protein (6.3-8.2) g/dL Albumin (3.5-5.0) g/dL Globulin (1.7-4.1) g/dL Albumin/Globulin Ratio (1.0-2.8) Point of Care Testing Test Results Negative Urine Dip Bedside Urine Glucose Negative Bedside Urine Bilirubin - Negative Bedside Urine Ketone + 15 Urine Specific [place] 1.015 Bedside Urine Occult Blood - Negative Bedside Urine pH 6.0 Bedside Urine Protein - Negative Bedside Urine Urobilinogen - Negative Bedside Urine Nitrite - Negative Bedside Urine Leukocytes - Negative Esterase MDM Narrative Medical decision making narrative: 46-year-old female presents to the ED with 3 days of right-sided abdominal pain, blood in stool, hives. Concern for gallbladder disease versus hemorrhoids versus diverticulitis versus anemia versus allergic reaction versus other. Will obtain labs, lipase, lactate, UA, ultrasound abdomen. Will give Benadryl, Pepcid AC, prednisone for the allergic reaction. reassuring that there are no signs or symptoms of anaphylaxis. will consider CT abdomen pelvis. Will reassess. Labs, UA, ultrasound abdomen without acute findings. CT abdomen pelvis was obtained, also with no acute findings. H&H appears stable. Patient responded well to the Benadryl, Pepcid AC, prednisone. Recommend continued use of Benadryl, Pepcid AC, prednisone for the next few days. Discussed findings with patient. Patient agrees to follow-up with a PCP or GI specialist for further evaluation of the rectal bleeding. ED return precautions were discussed with patient. Patient verbalized understanding. Medical records reviewed: Yes <Mars Chi DO - Last Filed: 04/27/22 16:11> Lab Data Labs: Lab Results 04/27/22 04/27/22 04/27/22 Range/Units 12:50 12:50 12:50 WBC 9.2 (4.5-11.0) X10^3/uL RBC 4.71 (4.0-5.2) X10^6/uL Hgb 13.7 (12.0-16.0) g/dL Hct 41.4 (36-46) % MCV 88.0 (80-100) fL MCH 29.2 (26-34) PG MCHC 33.2 (30-36) % RDW 13.9 (11.6-14.8) % Plt Count 351 (150-400) X10^3/uL Neut % (Auto) 60.2 (50-75) % Lymph % (Auto) 32.5 (25-40) % [place] % (Auto) 5.5 (3-14) % Eos % (Auto) 1.1 L (2-4) % Baso % (Auto) 0.7 (0-2) % Neut # (Auto) 5500 (3543-2926) /uL Lymph # (Auto) 3000 (9573-7629) /uL [place] # (Auto) 500 (0-900) /uL Eos # (Auto) 100 (0-450) /uL Baso # (Auto) 100 (0-100) /uL PT 13.0 H (10.1-12.7) SECONDS INR 1.1 (0.9-1.3) APTT 32 (26-36) SECONDS Sodium 138 (137-145) mmol/L Potassium 3.8 (3.4-5.1) mmol/L Chloride 105 (98-107) mmol/L Carbon Dioxide 22 (22-32) mmol/L BUN 14 (7-17) mg/dL Creatinine 0.62 (0.52-1.04) mg/dL Estimated GFR > 60 (>60) mL/min BUN/Creatinine Ratio 22.6 H (6-22) Glucose 92 (70-100) mg/dL Lactate (0.7-2.1) mmol/L Calcium 9.2 (8.4-10.2) mg/dL Total Bilirubin 0.6 (0.2-1.3) mg/dL AST 24 (14-36) IU/L ALT 21 (<35) IU/L Alkaline Phosphatase 58 (38-126) U/L Total Protein 8.1 (6.3-8.2) g/dL Albumin 4.6 (3.5-5.0) g/dL Globulin 3.5 (1.7-4.1) g/dL Albumin/Globulin Ratio 1.3 (1.0-2.8) 04/27/22 Range/Units 12:50 WBC (4.5-11.0) X10^3/uL RBC (4.0-5.2) X10^6/uL Hgb (12.0-16.0) g/dL Hct (36-46) % MCV (80-100) fL MCH (26-34) PG MCHC (30-36) % RDW (11.6-14.8) % Plt Count (150-400) X10^3/uL Neut % (Auto) (50-75) % Lymph % (Auto) (25-40) % [place] % (Auto) (3-14) % Eos % (Auto) (2-4) % Baso % (Auto) (0-2) % Neut # (Auto) (1879-6651) /uL Lymph # (Auto) (0121-4221) /uL [place] # (Auto) (0-900) /uL Eos # (Auto) (0-450) /uL Baso # (Auto) (0-100) /uL PT (10.1-12.7) SECONDS INR (0.9-1.3) APTT (26-36) SECONDS Sodium (137-145) mmol/L Potassium (3.4-5.1) mmol/L Chloride (98-107) mmol/L Carbon Dioxide (22-32) mmol/L BUN (7-17) mg/dL Creatinine (0.52-1.04) mg/dL Estimated GFR (>60) mL/min BUN/Creatinine Ratio (6-22) Glucose (70-100) mg/dL Lactate 0.8 (0.7-2.1) mmol/L Calcium (8.4-10.2) mg/dL Total Bilirubin (0.2-1.3) mg/dL AST (14-36) IU/L ALT (<35) IU/L Alkaline Phosphatase (38-126) U/L Total Protein (6.3-8.2) g/dL Albumin (3.5-5.0) g/dL Globulin (1.7-4.1) g/dL Albumin/Globulin Ratio (1.0-2.8) Point of Care Testing Test Results Negative Urine Dip Bedside Urine Glucose Negative Bedside Urine Bilirubin - Negative Bedside Urine Ketone + 15 Urine Specific [place] 1.015 Bedside Urine Occult Blood - Negative Bedside Urine pH 6.0 Bedside Urine Protein - Negative Bedside Urine Urobilinogen - Negative Bedside Urine Nitrite - Negative Bedside Urine Leukocytes - Negative Esterase Discharge Plan Departure Patient Disposition: Home Clinical Impression: Bright red rectal bleeding, Abdominal pain, Allergic reaction Instructions: DI for Abdominal Pain-Adult, DI for General Allergic Reactions, Gastrointestinal Bleeding Activity Restrictions/Additional Instructions: you were evaluated in the ED today for hives, abdominal pain, rectal bleeding. Your labs, urine, CT abdomen pelvis, ultrasound abdomen were normal, and do not explain why you are having these symptoms. The hives could be an allergic reaction to a bug bite. Please continue Benadryl, Pepcid AC, prednisone the next few days. Given that you have increased the intensity of your rowing exercises, the abdominal pain could possibly also be Musculoskeletal. You may take Tylenol for the pain. The rectal bleeding could be due to hemorrhoids, anal fissure or other gastrointestinal issues. Please follow-up with your PCP and/or a GI specialist as soon as possible. please return to the ED if you experience worsening symptoms, shortness of breath, tongue swelling, lip swelling, throat swelling, chest pain, lightheadedness, dizziness. Prescriptions: New prednisone 20 mg tablet 40 mg PO DAILY 5 Days Qty: 10 0RF No Action diltiazem HCl 240 mg Tablet Extended Release 24 Hr 240 mg PO DAILY (DME) ResMed AirSense 10 See Rx Instructions .ROUTE .MEDSUPPLY Rx Instructions: CPAP Min: 6 Max: 20 DME: [facility] Referrals: Miscellaneous,Doctor, MD [Primary Care Provider] - Stand Alone Forms: Patient Portal/API <Mars Chi, DO - Last Filed: 04/27/22 16:11> Cosign ED Attending Cosmaria rature Attestation: Dr Chi Co-Sign Statement: I was available for consultation during this patient's emergency department visit. This chart is signed by myself for administrative purposes only. I did not have direct contact with this patient during this visit. They were seen independently by the APC.
[2022-04-27] MEDS: PANTOPRAZOLE 40 MG VIAL 80 MG IV (13:01)
--- NOTE | 2022-04-27 13:07 | DI.US.S_ITS ---
PROCEDURE: US ABDOMEN LIMITED INDICATIONS: RUQ PAIN TECHNIQUE: Real-time focused scanning was performed of the abdomen, with image documentation. COMPARISON: None. FINDINGS: Liver is enlarged measuring 20.5 cm with steatosis. Gallbladder demonstrates no stones. Wall thickness is normal measuring 1.8 mm. Common bile duct is not clearly identified. IMPRESSION: Hepatomegaly steatosis. Gallbladder is unremarkable. Dictated by: Allegra Spears M.D. on 04/27/2022 at 14:41 Approved by: Allegra Spears M.D. on 04/27/2022 at 14:42
[2022-04-27 13:14] LABS: Add Manual Diff / Slide Review NO; Basophils Absolute Auto 100 /uL (0-100); Basophils Percent Auto 0.7 % (0-2); Eosinophils Absolute Auto 100 /uL (0-450); Eosinophils Percent Auto 1.1 % (2-4); Hematocrit 41.4 % (36-46); Hemoglobin 13.7 g/dL (12.0-16.0); Lymphocytes Absolute Auto 3000 /uL (1100-4500); Lymphocytes Percent Auto 32.5 % (25-40); Mean Corpuscular HGB Conc 33.2 % (30-36); Mean Corpuscular Hemoglobin 29.2 PG (26-34); Monocytes Absolute Auto 500 /uL (0-900); Monocytes Percent Auto 5.5 % (3-14); Neutrophils Absolute Auto 5500 /uL (1500-7000); Neutrophils Percent Auto 60.2 % (50-75); Platelet Count 351 X10^3/uL (150-400); Red Blood Cell Count 4.71 X10^6/uL (4.0-5.2); Red Cell Distribution Width 13.9 % (11.6-14.8); White Blood Cell Count 9.2 X10^3/uL (4.5-11.0)
[2022-04-27] MEDS: FAMOTIDINE 20 MG/2 ML VIAL IV (13:15)
[2022-04-27] MEDS: diphenhydrAMINE 50 MG/ML VIAL 25 MG IV (13:15)
[2022-04-27] MEDS: predniSONE 20 MG TABLET 60 MG PO (13:17)
[2022-04-27 13:22] LABS: INR 1.1 (0.9-1.3)
[2022-04-27 13:25] LABS: PTT Partial Thromboplastin Tim 32 SECONDS (26-36)
[2022-04-27 13:26] LABS: Lactate (Lactic Acid) 0.8 mmol/L (0.7-2.1)
[2022-04-27 13:27] LABS: Alanine Aminotransferase 21 IU/L (<35); Albumin 4.6 g/dL (3.5-5.0); Albumin Globulin Ratio 1.3 (1.0-2.8); Alkaline Phosphatase 58 U/L (38-126); Aspartate Aminotransferase 24 IU/L (14-36); BUN Creatinine Ratio 22.6 (6-22); Bilirubin Total 0.6 mg/dL (0.2-1.3); Blood Urea Nitrogen 14 mg/dL (7-17); Calcium 9.2 mg/dL (8.4-10.2); Carbon Dioxide 22 mmol/L (22-32); Chloride 105 mmol/L (98-107); Estimated Glomerular Filt Rate > 60 mL/min (>60); Globulin 3.5 g/dL (1.7-4.1); Glucose 92 mg/dL (70-100); HEMOLYSIS < 15 (0-50); Potassium 3.8 mmol/L (3.4-5.1); Sodium 138 mmol/L (137-145); Total Protein 8.1 g/dL (6.3-8.2)
--- NOTE | 2022-04-27 14:46 | DI.CT.S_ITS ---
PROCEDURE: CT ABDOMEN PELVIS W CON INDICATIONS: RUQ pain, brb in stool TECHNIQUE: After the administration of intravenous contrast, axial sections acquired from the lung bases to the pubic symphysis. Coronal and sagittal reformats were performed. For radiation dose reduction, the following was used: automated exposure control, adjustment of mA and/or kV according to patient size. COMPARISON: None. FINDINGS: Image quality: Excellent. Lung bases: Unremarkable. Heart: No significant findings. ABDOMEN: Liver: Unremarkable. Gallbladder: Unremarkable. Biliary ducts: Unremarkable. Pancreas: Unremarkable. Spleen: Unremarkable. Adrenal Glands: Unremarkable. Kidneys and Ureters: Unremarkable. Stomach and Bowel: Stomach, small bowel loops, and colon are unremarkable. Normal appendix. Peritoneum: No abnormal intraperitoneal fluid. No free air. Ventral Wall: Tiny umbilical hernia containing fat. Abdominal Nodes: No retroperitoneal or mesenteric adenopathy by size criteria. Vessels: Aorta and inferior vena cava are normal in size. PELVIS: Pelvic Organs: Unremarkable. Bladder: Unremarkable. Pelvic Nodes: No enlarged lymph nodes. Miscellaneous: No hernias are seen. Bones: Unremarkable. IMPRESSION: No acute findings to explain the patient's right upper quadrant pain. No nephrolithiasis, cholecystitis or colitis. Dictated by: Matt Reyes M.D. on 04/27/2022 at 15:00 Approved by: Matt Reyes M.D. on 04/27/2022 at 15:02
== END 2022-04-27 15:36 | disposition home or self-care (01) ==
PROVIDERS: Emergency Medicine; Emergency Provider Student in an Organized Health Care Education/Training Program
DX: K92.2 Gastrointestinal hemorrhage, unspecified (principal); R10.9 Unspecified abdominal pain; L50.9 Urticaria, unspecified; T78.40XA Allergy, unspecified, initial encounter
CPT/HCPCS: 36415; 74177; 76705; 80053; 81003; 81025; 83605; 85025; 85610; 85730; 96374; 96375; 99284; 99285; C9113; J1200

== ENCOUNTER → 2022-06-30 17:27 | Outpatient (CLI) | payer OTHER, SELFPAY ==
--- NOTE | 2022-06-30 17:29 | DI.RAD.S_ITS ---
PROCEDURE: XR CHEST 2V INDICATIONS: Acute Cough TECHNIQUE: 2 views of the chest were acquired. COMPARISON: [facility], CR, XR CHEST 2V, 02/27/2021, 15:04. FINDINGS: Surgical changes and devices: None. Lungs and pleura: Lungs are clear. No pleural effusions or pneumothorax. Mediastinum: Mediastinal contours are normal. Heart size is normal. Bones and chest wall: No suspicious bony abnormalities. Soft tissues appear unremarkable. IMPRESSION: No acute cardiopulmonary abnormality. Dictated by: Alexandru Eid M.D. on 07/01/2022 at 12:29 Approved by: Alexandru Eid M.D. on 07/01/2022 at 12:31
== END ==
PROVIDERS: PCP Family Medicine; Referring Provider Registered Nurse; Visit Provider Registered Nurse
DX: R05.1 Acute cough (principal)
CPT/HCPCS: 71046

== ENCOUNTER 2023-07-09 11:57 | Emergency (ER) | payer OTHER, SELFPAY ==
[2023-07-09 12:10] VITALS: BP 164/98; PULSE 80; RESP 16; TEMP 36.8; O2SAT 96; BMI 42.7
--- NOTE | 2023-07-09 12:18 | ED_ITS ---
HPI - Extremity Injury (Lower) <Geoffrey Moore PA-C - Last Filed: 07/09/23 14:02> General Chief Complaint: Extremity Injury, Lower Stated Complaint: poss blood clot r upper leg Time Seen by Provider: 07/09/23 12:18 History of Present Illness HPI Narrative: This is a 47-year-old female presents emergency department due to a dull aching pain to her distal right hamstring area onset about 5 days ago. She was unsure of his extra swollen. She denies any trauma to the right lower extremity. She was just recently on a [address] She denies any chest pain, shortness of breath, fevers, or any other concerning signs or symptoms. Related Data Home Medications Medication Instructions Recorded Confirmed ResMed AirSense 10 05/19/21 03/01/23 diltiazem HCl 240 mg 240 mg PO DAILY 07/08/21 03/01/23 tablet,extended release 24 hr Allergies Allergy/AdvReac Type Severity Reaction Status Date / Time povidone-iodine Allergy Severe Rash Verified 04/27/22 12:24 [From Betadine] Review of Systems <Geoffrey Moore PA-C - Last Filed: 07/09/23 14:02> Review of Systems Narrative: GENERAL: Denies chills, fatigue, malaise, fever, sweats. HEENT: Denies sinus pain, ear pain, sore throat, difficulty swallowing, dizziness. RESPIRATORY: Denies dyspnea, cough, wheezing, hemoptysis, sputum. CARDIOVASCULAR: Denies chest pain, palpitations, orthopnea, edema, GASTROINTESTINAL: Denies nausea, vomiting, abdominal pain, diarrhea, constipation, melena. : Denies dysuria, frequency, incontinence, hematuria, urinary retention. MUSCULOSKELETAL: Reports right lower extremity pain SKIN: Denies rash, skin lesions, or other NEUROLOGIC: Denies weakness, headache, numbness, change in speech, confusion, seizures, incoordination. PSYCHIATRIC: No concerning psychosocial issues. 12 point review of systems is negative except for those stated above Patient History <Geoffrey Moore PA-C - Last Filed: 07/09/23 14:02> Medical History Awareness under anesthesia BCC (basal cell carcinoma) Chest pain Depression HTN (hypertension) Hypertriglyceridemia Migraine Palpitations PONV (postoperative nausea and vomiting) PTSD (post-traumatic stress disorder) Sleep apnea Surgical History History of open reduction and internal fixation (ORIF) procedure (09/20/20) Social History household members: family Smoking Status: Never smoker alcohol intake: current Smoking Status: Never smoker alcohol intake frequency: a few times a month Substance Use Type: marijuana Exam <Geoffrey Moore PA-C - Last Filed: 07/09/23 14:02> Narrative Exam Narrative: GENERAL: Well-developed patient, in mild distress. HEAD: Atraumatic. Normocephalic. EYES: Pupils equal round and reactive. Extraocular motions intact. No scleral icterus. No injection or drainage. ENT: Nose without bleeding, purulent drainage. Throat without erythema, tonsillar hypertrophy or exudate. Airway patent. NECK: Trachea midline. Non tender EXTREMITIES: No edema or joint tenderness. no tenderness to palpation to the right posterior hamstring, no edema or erythema. NEURO: AOx3. SKIN: No rash or erythema of visible areas Initial Vital Signs Initial Vital Signs: Vital Signs Temperature 98.2 F 07/09/23 12:10 Pulse Rate 80 07/09/23 12:10 Respiratory Rate 16 07/09/23 12:10 Blood Pressure 164/98 H 07/09/23 12:10 Pulse Oximetry 96 07/09/23 12:10 Oxygen Delivery Method Room Air 07/09/23 12:10 <Melva Nuñez DO - Last Filed: 07/10/23 09:31> Initial Vital Signs Initial Vital Signs: Vital Signs Temperature 98.2 F 07/09/23 12:10 Pulse Rate 80 07/09/23 12:10 Respiratory Rate 16 07/09/23 12:10 Blood Pressure 164/98 H 07/09/23 12:10 Pulse Oximetry 96 07/09/23 12:10 Oxygen Delivery Method Room Air 07/09/23 12:10 Course <Geoffrey Moore PA-C - Last Filed: 07/09/23 14:02> Orders Ordered: ED Orders 07/09/23 12:23 US periph venous low extrem rt Stat Vital Signs Vital signs: Vital Signs - 8 hr 07/09/23 12:10 07/09/23 13:56 Temperature 98.2 F Pulse Rate 80 75 Respiratory Rate 16 20 Blood Pressure 164/98 H 162/84 H Pulse Oximetry 96 98 Oxygen Delivery Method Room Air Room Air <Melva Nuñez DO - Last Filed: 07/10/23 09:31> Orders Ordered: ED Orders 07/09/23 12:23 US periph venous low extrem rt Stat Vital Signs Vital signs: Vital Signs - 8 hr 07/09/23 12:10 07/09/23 13:56 Temperature 98.2 F Pulse Rate 80 75 Respiratory Rate 16 20 Blood Pressure 164/98 H 162/84 H Pulse Oximetry 96 98 Oxygen Delivery Method Room Air Room Air MDM - Extremity Injury (Lower) <Geoffrey Moore PA-C - Last Filed: 07/09/23 14:02> Imaging Data US - DVT: Radiologist's Impression: [address] [address] Ultrasound Report Signed Patient: Domenica Alba MR#: [id number] : 1975 Acct:[id number] Age/Sex: 47 / F Date of Service: 07/09/23 Loc: ED Accession Number: [id number] Procedure: US periph venous low extrem rt Ordering Provider: Geoffrey Moore P.A-C PROCEDURE: US PERIPH VENOUS LOW EXTREM RT INDICATIONS: POSTERIOR INFERIOR THIGH PAIN TECHNIQUE: Real-time imaging, as well as color and pulse Doppler interrogation, were performed of the lower extremity deep veins from the inguinal ligament to the popliteal fossa, with documentation of the visualized calf veins. COMPARISON: None. FINDINGS: The common femoral, femoral, popliteal, and the visualized calf veins are normally compressible, and free of intraluminal thrombus. Color and pulse Doppler demonstrate normal phasic intraluminal flow. There is normal augmentation response to distal compression maneuver. IMPRESSION: No findings of lower extremity deep venous thrombosis. Dictated by: Tez Catalan M.D. on 07/09/2023 at 13:54 Approved by: Tez Catalan M.D. on 07/09/2023 at 13:55 [facility] Narrative Medical decision making narrative: ED course: This is a 47-year-old female presents emergency department due to suspected musculoskeletal right hamstring pain. Ultrasound is ordered to rule out DVT which was negative. No evidence of any kind of cellulitis. No trauma that would need any kind of x-ray. Recommended supportive care. CC: Right hamstring pain Complicating co-morbidities: none Data collected from: Previous notes Medical records reviewed: Patient was last seen about a year ago due to hives, abdominal pain, rectal bleeding. History basal cell carcinoma, hypertension, hypertriglyceridemia, migraines, PTSD, sleep apnea. Patient was treated for allergic reaction and discharge. Differential considered, but not limited to: fracture, soft tissue injury, DVT Exam documented above, pertinent findings include: No tenderness to palpation or edema to the right hamstring area Lab Test results independently reviewed as above. Pertinent findings: not obtained Imaging studies independently reviewed: DVT ultrasound was negative Scores Used: None MIPS Elements: None Consultations: None Treatments: none Re-evaluations: none Discussion: Discussed plan with the patient was comfortable with the plan Diagnosis: muscle strain Disposition: see below, along with detailed discharge instructions that have been reviewed with patient as well as indications for ED re-evaluation and additional outpatient follow up Discharge Plan Departure Patient Disposition: Home Clinical Impression: Muscle strain Instructions: DI for Leg Pain Activity Restrictions/Additional Instructions: Thank you for coming to the [facility] Emergency Department today. as we discussed the ultrasound of your leg was negative for any kind of blood clot. I believe that this is soft tissue in nature and should improve with rest, ibuprofen, warm compresses. Please return to the emergency department if you develop any Significant new or worsening pain or swelling, fevers, chest pain, shortness of breath, or any other concerning signs or symptoms. I hope you feel better soon. Please follow up with your primary care provider within a week if your symptoms continue. If you do not have a primary care provider please contact the [facility] Resource line at [phone]. They will ask some questions about your medical history and help you get set up with a provider in the community. Prescriptions: No Action diltiazem HCl 240 mg Tablet Extended Release 24 Hr 240 mg PO DAILY (DME) ResMed AirSense 10 See Rx Instructions .Route .MEDSUPPLY Rx Instructions: CPAP Min: 6 Max: 20 DME: [place] Referrals: Yosi Ball MD [Primary Care Provider] - Stand Alone Forms: Patient Portal/API ED Sign-out <Melva Nuñez DO - Last Filed: 07/10/23 09:31> Cosign ED Attending Cosignature Attestation: I was available for consultation.
--- NOTE | 2023-07-09 12:27 | PC.NURSE ---
Pt came to the ED today because she was sent by her pcp for concerns of DVT. Pt reports that she has been traveling recently in the car for about 30 hours and noticed yesterday that she has pain in her RLE. Pt called pcp and and they sent pt to ED for further evaluation. Pt states that she was wearing her compression socks during the duration of her travel because her ankle swells since she broke it several years ago. Pt denies SOB, CP. 4/10 pain that she describes as a constant dull throbbing. Pt has family hx of blood clots. Is not anticoagulated at this time.
--- NOTE | 2023-07-09 13:45 | DI.US.S_ITS ---
PROCEDURE: US PERIPH VENOUS LOW EXTREM RT INDICATIONS: POSTERIOR INFERIOR THIGH PAIN TECHNIQUE: Real-time imaging, as well as color and pulse Doppler interrogation, were performed of the lower extremity deep veins from the inguinal ligament to the popliteal fossa, with documentation of the visualized calf veins. COMPARISON: None. FINDINGS: The common femoral, femoral, popliteal, and the visualized calf veins are normally compressible, and free of intraluminal thrombus. Color and pulse Doppler demonstrate normal phasic intraluminal flow. There is normal augmentation response to distal compression maneuver. IMPRESSION: No findings of lower extremity deep venous thrombosis. Dictated by: Tez Catalan M.D. on 07/09/2023 at 13:54 Approved by: Tez Catalan M.D. on 07/09/2023 at 13:55
[2023-07-09 13:56] VITALS: BP 162/84; PULSE 75; RESP 20; O2SAT 98
== END 2023-07-09 13:59 | disposition home or self-care (01) ==
PROVIDERS: Emergency Provider Physician Assistant Medical; PCP Family Medicine
DX: S86.111A Strain of other muscle(s) and tendon(s) of posterior muscle group at lower leg level, right leg, initial encounter (principal); X58.XXXA Exposure to other specified factors, initial encounter
CPT/HCPCS: 93971; 99281; 99282

== ENCOUNTER → 2023-07-12 15:38 | Outpatient (CLI) | payer OTHER, SELFPAY ==
--- NOTE | 2023-07-12 15:39 | DI.US.S_ITS ---
PROCEDURE: US ABDOMEN LIMITED INDICATIONS: RLQ PAIN / FLANK TECHNIQUE: Real-time scanning was performed of the abdominal and retroperitoneal organs, with image documentation. COMPARISON: [facility], , US ABDOMEN LIMITED, 04/27/2022, 13:15. FINDINGS: The appendix is not visualized. The right kidney has a normal sonographic appearance. No hydronephrosis. IMPRESSION: Nonvisualization of the appendix. No hydronephrosis. Dictated by: Beronica Aviles M.D. on 07/12/2023 at 17:15 Approved by: Beronica Aviles M.D. on 07/12/2023 at 17:16
== END ==
PROVIDERS: PCP Family Medicine; Referring Provider Family Medicine; Visit Provider Family Medicine
DX: R10.31 Right lower quadrant pain (principal)
CPT/HCPCS: 76705

== ENCOUNTER → 2023-08-30 17:16 | Outpatient (CLI) | payer OTHER, SELFPAY ==
--- NOTE | 2023-08-30 17:17 | DI.MRI.S_ITS ---
PROCEDURE: MR ANKLE LT WO CON INDICATIONS: FX OF ANKLE,TRIMALLEOLAR LEFT SEQUELA TECHNIQUE: Noncontrast sagittal T1 spin echo and T2 fast spin echo with fat saturation, axial proton density fast spin echo and T2 fast spin echo with fat saturation, coronal T1 spin echo and T2 fast spin echo with fat saturation through the ankle/hindfoot. COMPARISON: [facility], CR, XR ANKLE 3 VIEWS WEIGHT BEARING LEFT, 05/14/2023, 15:29. FINDINGS: Image quality: Excellent. Bones and joints: Moderate tibiotalar joint osteoarthritic changes are seen with significant joint space narrowing, subchondral sclerosis and marginal osteophyte formation. Osteochondral injuries are noted involving weight-bearing portion of talar dome measures up to 9 x 9 x 6 mm in size with surrounding edema. Osteochondral injuries also noted involving posterior aspect of distal tibial plafond measures up to 1 x 1 cm in size. No acute fracture or dislocation. Well-defined plantar and dorsal calcaneal enthesophytes are seen. Small tibiotalar joint effusion, no loose bodies. Medial structures: The posterior tibialis tendon appears thickened at the level of distal talus and talonavicular joint. The flexor digitorum longus, and flexor hallucis longus tendons are intact. The posterior tibial neurovascular bundle appears normal within the tarsal tunnel, without extrinsic mass effect. The deltoid ligament and spring ligament are intact. Lateral structures: The anterior talofibular, calcaneofibular, and posterior talofibular ligaments appear thickened. More superiorly, the anterior and posterior tibiofibular ligaments appear intact, as is the intermalleolar ligament. The tibiofibular syndesmosis is normal in width at 2 mm or less. The peroneus longus and brevis tendons are within normal limits. The sinus tarsi demonstrates normal fatty signal, without edema, fibrosis, or cyst formation. Visualized sinus tarsi components (cervical ligament, interosseous talocalcaneal ligament, roots of the inferior extensor retinaculum) appear normal. Anterior structures: The tibialis anterior, extensor hallucis longus, and extensor digitorum longus tendons appear intact. The dorsal talonavicular ligament appears intact. Posterior and plantar structures: Achilles tendon is intact. Medial and lateral bands of the plantar fascia are of normal thickness. No abductor digiti quinti muscle atrophy to suggest Crews neuropathy. IMPRESSION: 1. Moderate tibiotalar joint osteoarthritis with osteochondral injuries in talar dome and adjacent distal tibial plafond as described above. No fracture or dislocation. Well-defined plantar calcaneal enthesophyte. Small joint effusion, no loose bodies. 2. Tendinosis involving posterior tibialis tendon near its distal insertion. 3. Rest of the ankle tendons are intact. 4. Low to moderate grade sprain involving ATFL, calcaneofibular ligament and posterior talofibular ligament. No full-thickness ankle ligament rupture. Dictated by: Mike Devries M.D. on 08/31/2023 at 9:28 Approved by: Mike Devries M.D. on 08/31/2023 at 13:10
== END ==
PROVIDERS: PCP Family Medicine; Referring Provider Orthopaedic Surgery Foot and Ankle Surgery; Visit Provider Orthopaedic Surgery Foot and Ankle Surgery
DX: S82.852S Displaced trimalleolar fracture of left lower leg, sequela (principal); M25.472 Effusion, left ankle; M19.072 Primary osteoarthritis, left ankle and foot; M77.32 Calcaneal spur, left foot; S93.492A Sprain of other ligament of left ankle, initial encounter
CPT/HCPCS: 73721

== ENCOUNTER → 2024-02-26 10:55 | Outpatient (CLI) | payer OTHER, SELFPAY ==
--- NOTE | 2024-02-26 | DI.MG.S_ITS ---
BILATERAL DIGITAL SCREENING MAMMOGRAM 3D/2D WITH CAD: 02/26/2024 CLINICAL: Routine screening. Baseline exam. No prior exams were available for comparison. The breasts are heterogeneously dense, which may obscure small masses (category c / 51-75% glandular tissue). Current study was also evaluated with a Computer Aided Detection (CAD) system. There is a focal asymmetry in the left breast at 2 o'clock posterior depth. No other significant masses, calcifications, or other findings are seen in either breast. IMPRESSION: INCOMPLETE: NEED ADDITIONAL IMAGING EVALUATION The focal asymmetry in the left breast resembles a lymph node and is indeterminate. Additional views with possible ultrasound are recommended. Based on the Tyrer Cuzick model (a risk assessment model) the patient's lifetime risk is 13.0% and her 10 year risk is 2.8%. According to the ACR, ACS, and NCCN guidelines, an annual breast MRI exam along with mammogram is recommended if the patient's lifetime risk is 20% or greater. This exam was interpreted at Station ID: [id number]. NOTE: For mammograms, a report in lay terms will be sent to the patient. Approximately 15% of breast malignancies will not be visualized mammographically. In the management of a palpable breast mass, a negative mammogram must not discourage biopsy of a clinically suspicious lesion. Electronically Signed By: Mehran owen/breonna:02/28/2024 11:38:47 letter sent: Additional Imaging Needed ACR BI-RADS Category 0: Incomplete: Need Additional Imaging Evaluation
== END ==
PROVIDERS: PCP Family Medicine; Referring Provider Family Medicine; Visit Provider Family Medicine
DX: Z12.31 Encounter for screening mammogram for malignant neoplasm of breast (principal); R92.333 Mammographic heterogeneous density, bilateral breasts
CPT/HCPCS: 77063; 77067

== ENCOUNTER → 2024-03-27 08:41 | Outpatient (CLI) | payer OTHER, SELFPAY ==
--- NOTE | 2024-03-27 08:42 | DI.US.S_ITS ---
LIMITED ULTRASOUND OF LEFT BREAST: 03/27/2024 CLINICAL: Patient returns today to evaluate a focal asymmetry in the left breast. Comparison is made to exams dated: 03/27/2024 mammogram and 02/26/2024 mammogram - [facility]. Real-time ultrasound of the left breast 12-3 o'clock region was performed. Jacobo scale images of the real-time examination were reviewed. No significant abnormalities were seen sonographically in the left breast. Specifically, no finding to correspond to the patient's screening mammographic abnormality. IMPRESSION: PROBABLY BENIGN No sonographic correlate to the screening mammogram finding. A follow-up mammogram in 6 months is recommended to demonstrate stability. Findings and recommendations were conveyed to the patient at time of exam. This exam was interpreted at Station ID: [id number]. Electronically Signed By: Mary Anne ward/:03/27/2024 09:37:28 letter sent: Followup Recommended ACR BI-RADS Category 3: Probably Benign
--- NOTE | 2024-03-27 08:42 | DI.MG.S_ITS ---
UNILATERAL LEFT DIGITAL DIAGNOSTIC MAMMOGRAM 3D/2D WITH ADDITIONAL VIEWS: 03/27/2024 CLINICAL: Additional evaluation requested from prior study. Comparison is made to exam dated: 02/26/2024 mammogram - [facility]. The breasts are heterogeneously dense, which may obscure small masses (category c / 51-75% glandular tissue). There is a possible 7 mm irregular low density asymmetry with an indistinct margin in the left breast at 2 o'clock posterior depth. This is not seen in additional views. No other significant masses or calcifications are seen in the breast. IMPRESSION: INCOMPLETE: NEED ADDITIONAL IMAGING EVALUATION The possible 7 mm irregular low density asymmetry in the left breast most likely is fibroglandular tissue but remains indeterminate. An ultrasound is recommended. This was performed immediately following this exam. Based on the Tyrer Cuzick model (a risk assessment model) the patient's lifetime risk is 13.0% and her 10 year risk is 2.8%. According to the ACR, ACS, and NCCN guidelines, an annual breast MRI exam along with mammogram is recommended if the patient's lifetime risk is 20% or greater. This exam was interpreted at Station ID: [id number]. NOTE: For mammograms, a report in lay terms will be sent to the patient. Approximately 15% of breast malignancies will not be visualized mammographically. In the management of a palpable breast mass, a negative mammogram must not discourage biopsy of a clinically suspicious lesion. Electronically Signed By: Mary Anne ward/:03/27/2024 09:25:31 letter sent: Additional Imaging Needed ACR BI-RADS Category 0: Incomplete: Need Additional Imaging Evaluation
== END ==
PROVIDERS: PCP Family Medicine; Referring Provider Family Medicine; Visit Provider Family Medicine
DX: R92.8 Other abnormal and inconclusive findings on diagnostic imaging of breast (principal); N64.4 Mastodynia; R92.333 Mammographic heterogeneous density, bilateral breasts
CPT/HCPCS: 76642; 77065; G0279

== ENCOUNTER → 2024-06-28 16:26 | Outpatient (CLI) | payer OTHER, SELFPAY ==
[2024-06-28 17:54] LABS: Add Manual Diff / Slide Review NO; Basophils Absolute Auto 100 /uL (0-100); Basophils Percent Auto 0.7 % (0-2); Eosinophils Absolute Auto 100 /uL (0-450); Eosinophils Percent Auto 0.7 % (2-4); Hematocrit 37.9 % (36-46); Lymphocytes Absolute Auto 2700 /uL (1100-4500); Lymphocytes Percent Auto 31.4 % (25-40); Mean Corpuscular HGB Conc 34.3 % (30-36); Mean Corpuscular Hemoglobin 30.7 PG (26-34); Mean Corpuscular Volume 89.8 fL (80-100); Monocytes Absolute Auto 500 /uL (0-900); Monocytes Percent Auto 5.4 % (3-14); Neutrophils Absolute Auto 5300 /uL (1500-7000); Neutrophils Percent Auto 61.8 % (50-75); Platelet Count 312 X10^3/uL (150-400); Red Blood Cell Count 4.22 X10^6/uL (4.0-5.2); Red Cell Distribution Width 13.3 % (11.6-14.8); White Blood Cell Count 8.6 X10^3/uL (4.5-11.0)
[2024-06-28 18:07] LABS: Erythrocyte Sedimentation Rate 11 MM/HR (0-20)
[2024-06-28 18:12] LABS: C-Reactive Protein Quant < 0.5 mg/dL (<1.0)
== END ==
PROVIDERS: PCP Family Medicine; Referring Provider Family Medicine; Visit Provider Family Medicine
DX: M79.672 Pain in left foot (principal)
CPT/HCPCS: 36415; 85025; 85651; 86140

== ENCOUNTER → 2025-01-24 17:05 | Outpatient (CLI) | payer OTHER, SELFPAY ==
[2025-01-24 18:11] LABS: Influenza A - CEPHEID Flu A NEGATIVE (NEGATIVE); Influenza B - CEPHEID Flu B NEGATIVE (NEGATIVE)
[2025-01-24 18:13] LABS: COVID-19 CEPHEID 4-PLEX PCR Negative (Negative)
== END ==
PROVIDERS: PCP Family Medicine; Visit Provider Student in an Organized Health Care Education/Training Program
DX: J02.9 Acute pharyngitis, unspecified (principal); R05.1 Acute cough
CPT/HCPCS: 87070; 87637